=== PATIENT | female | born 1990 | race Caucasian/White ===

== ENCOUNTER 2019-09-01 18:45 | Emergency (ER) | payer MEDICAID ==
[~2019-09-01] VITALS: Ht 152.4 cm; Wt 75.3 kg
[2019-09-01 19:06] VITALS: Ht 152.4 cm; Wt 75.3 kg
[2019-09-01 21:04] VITALS: BP 144/87
== END 2019-09-01 21:04 | disposition home or self-care (01) ==
LOC: ED 18:45
DX: M54.2 Cervicalgia (principal); R22.1 Localized swelling, mass and lump, neck; R05 Cough; H92.03 Otalgia, bilateral

== ENCOUNTER 2019-10-06 18:22 | Emergency (ER) | payer MEDICAID ==
[~2019-10-06] VITALS: Ht 152.4 cm; Wt 76.2 kg
[2019-10-06 18:31] VITALS: Ht 152.4 cm; Wt 76.2 kg
[2019-10-06 19:55] VITALS: BP 124/93
== END 2019-10-06 19:55 | disposition home or self-care (01) ==
LOC: ED 18:22
DX: J40 Bronchitis, not specified as acute or chronic (principal); Z98.890 Other specified postprocedural states
CPT/HCPCS: J1100